=== PATIENT | male | born 1945 | race Caucasian/White ===

== ENCOUNTER 2018-09-27 07:02 | Day surgery (SDC) | payer MEDICARE, BC ==
[~2018-09-27] VITALS: Ht 172.7 cm; Wt 99.6 kg
[2018-09-27] VITALS (10 sets, daily range): BP systolic 127–151; BP diastolic 55–93
[~2018-09-27 07:02] MED LIST: ALLO100T PO; ASPI81TA52 PO; FERR-86 PO; FISH OIL PO; FLO0.1T PO; FLO0.4C PO; Glucosamine PO; METO50TA17 PO; SODI650T29 PO
[2018-09-27] MEDS ORDERED: diphenhydrAMINE 25mg capsule PO PRN (07:35)
[2018-09-27] MEDS ORDERED: sod bicarbonate 150mEq in D5W 1,150 ML IV ONE (07:35)
[2018-09-27] MEDS ORDERED: LABE100T5 PO (07:54)
[2018-09-27] MEDS ORDERED: PRED5TAB PO (07:54)
[2018-09-27] MEDS ORDERED: CEPH250T PO (07:54)
[2018-09-27] MEDS ORDERED: PRAV40TA3 PO (07:54)
[2018-09-27] MEDS ORDERED: TACR1CAP28 PO (07:54)
[2018-09-27] MEDS ORDERED: CALC0.2510 PO (07:54)
[2018-09-27] MEDS ORDERED: MYCO250C46 PO (07:54)
[2018-09-27] MEDS ORDERED: FINA5TAB11 PO (07:54)
[2018-09-27] MEDS ORDERED: LOSA1TAB36 PO (07:54)
[2018-09-27] MEDS ORDERED: AMLO10TA PO (07:54)
[2018-09-27 08:34] LABS: ALBUMIN 3.8 G/DL (3.4-5.0); ANION GAP 10 (8-16); BLOOD UREA NITROGEN 29 MG/DL (7-18); BUN/CREATININE RATIO 17.5 (5.4-32.0); CALCIUM 9.5 MG/DL (8.5-10.1); CHLORIDE 106 MMOL/L (99-107); CREATININE 1.66 MG/DL (0.60-1.10); GLUCOSE 129 MG/DL (70-104); MAGNESIUM 1.9 MG/DL (1.5-2.4); POTASSIUM 4.1 MMOL/L (3.5-5.1); SODIUM 141 MMOL/L (135-145); TOTAL CARBON DIOXIDE 25.2 MMOL/L (24-32); eGFR 41 ML/MIN
[2018-09-27 08:37] LABS: PROTHROMBIN TIME 10.1 SECONDS (9.0-12.0)
[2018-09-27 08:47] LABS: BASOPHILS % (AUTO) 0.4 % (0-1); EOSINOPHILS # (AUTO) 0.1 X10'3 (0-0.9); EOSINOPHILS % (AUTO) 0.9 % (0-6); HEMATOCRIT 44.5 % (42.0-52.0); LYMPHOCYTES # (AUTO) 0.7 X10'3 (1.1-4.8); LYMPHOCYTES % (AUTO) 10.3 % (21-51); MEAN CORPUSCULAR HEMOGLOBIN 31.8 PG (27.0-31.0); MEAN CORPUSCULAR HGB CONC 33.7 g/dL (33.0-36.5); MEAN CORPUSCULAR VOLUME 94.2 FL (78-98); MEAN PLATELET VOLUME 7.6 FL (7.4-10.4); MONOCYTES # (AUTO) 0.5 X10'3 (0-0.9); MONOCYTES % (AUTO) 6.2 % (2-12); NEUTROPHILS # (AUTO) 5.9 X10'3 (1.8-7.7); NEUTROPHILS % (AUTO) 82.2 % (42-75); PLATELET COUNT 136 X10'3 (140-440); RED BLOOD COUNT 4.72 X10'6 (4.70-6.10); RED CELL DISTRIBUTION WIDTH 14.7 % (11.5-14.5); WHITE BLOOD COUNT 7.2 X10'3 (4.5-11.0)
[2018-09-27] MEDS ORDERED: midazolam 2 mg/2 ml injection ONE ×2 (09:09→10:55)
[2018-09-27] MEDS ORDERED: fentaNYL/PF 50MCG/1 ML 2ML syringe ONE (09:09)
[2018-09-27] MEDS ORDERED: LIDOcaine 1% (10mg/ml)w/preservative injection 20ml MDV ONE (09:09)
[2018-09-27] MEDS ORDERED: iohexol 350MG/ML 100ml bottle IV ONE ×3 (09:09→10:10)
[2018-09-27] MEDS ORDERED: iohexol 350 MG/ML 50ML vial IV ONE (09:09)
[2018-09-27] MEDS ORDERED: heparin 1,000unit/ml 10ml vial 10 ML ONE (10:10)
[2018-09-27] MEDS ORDERED: heparin 1,000 UNITS/NS 500ml 500 ML ONE (10:40)
[2018-09-27] MEDS ORDERED: ticagrelor 90mg tablet ONE (11:18)
== END 2018-09-27 15:45 | disposition home or self-care (01) ==
LOC: SSTAY O 07:02
PROVIDERS: ATTEND Internal Medicine Cardiovascular Disease
DX: I25.10 Atherosclerotic heart disease of native coronary artery without angina pectoris (principal); I10 Essential (primary) hypertension; E78.5 Hyperlipidemia, unspecified; I48.91 Unspecified atrial fibrillation; M10.9 Gout, unspecified; G47.30 Sleep apnea, unspecified; E66.9 Obesity, unspecified; I34.0 Nonrheumatic mitral (valve) insufficiency; Z95.1 Presence of aortocoronary bypass graft; Z79.899 Other long term (current) drug therapy; Z98.890 Other specified postprocedural states
CPT/HCPCS: 36415; 80048; 83735; 85025; 85610; 93005; 93459; A6257; C1874; C9600; G0008; J1644; J2001; J2250; J3010; Q0163; Q9967; 99152; 99153; A4620; C1725; C1760; C1769; C1894; C9601

== ENCOUNTER 2021-04-19 07:00 | Day surgery (SDC) | payer MEDICARE, OTHER ==
[~2021-04-19] VITALS: Ht 175.3 cm; Wt 96.2 kg
[2021-04-19] VITALS (12 sets, daily range): BP systolic 104–134; BP diastolic 57–90
[~2021-04-19 07:00] MED LIST changes: +AMLO10TA PO; +APIX5TAB3 PO; -ASPI81TA52 PO; +CLOP75TA15 PO; -FERR-86 PO; -FISH OIL PO; -FLO0.1T PO; -Glucosamine PO; +LABE100T5 PO; +LOSA1TAB36 PO; -METO50TA17 PO; +MYCO250C46 PO; +OMEG1CAP13 PO; +PRAV40TA3 PO; +PRED5TAB PO; -SODI650T29 PO; +TACR1CAP24 PO; +TADA5TAB2 PO
[2021-04-19] MEDS ORDERED: AMIO200T61 PO (07:39)
[2021-04-19] MEDS ORDERED: APIX2.5T PO (07:39)
[2021-04-19] MEDS ORDERED: morphine 10mg/ml inj. IV ONE (07:45)
[2021-04-19] MEDS ORDERED: fentaNYL/PF 50MCG/1 ML 2ML syringe IV ONE (07:45)
[2021-04-19] MEDS ORDERED: normal saline 1000ml 1,000 ML IV SCH (07:45)
[2021-04-19 08:17] LABS: BASOPHILS % (AUTO) 0.4 % (0-1); EOSINOPHILS % (AUTO) 0.7 % (0-6); HEMATOCRIT 37.7 % (42.0-52.0); HEMOGLOBIN 12.4 g/dl (14.0-17.9); LYMPHOCYTES # (AUTO) 0.7 X10'3 (1.1-4.8); LYMPHOCYTES % (AUTO) 11.9 % (21-51); MEAN CORPUSCULAR HGB CONC 32.8 g/dL (33.0-36.5); MEAN CORPUSCULAR VOLUME 97.7 FL (78-98); MEAN PLATELET VOLUME 6.9 FL (7.4-10.4); MONOCYTES # (AUTO) 0.4 X10'3 (0-0.9); MONOCYTES % (AUTO) 7.1 % (2-12); NEUTROPHILS # (AUTO) 4.5 X10'3 (1.8-7.7); NEUTROPHILS % (AUTO) 79.9 % (42-75); PLATELET COUNT 148 X10'3 (140-440); RED BLOOD COUNT 3.86 X10'6 (4.70-6.10); WHITE BLOOD COUNT 5.7 X10'3 (4.5-11.0)
[2021-04-19 08:38] LABS: ALBUMIN 3.5 G/DL (3.4-5.0); ANION GAP 8 (8-16); BLOOD UREA NITROGEN 42 MG/DL (7-18); BUN/CREATININE RATIO 19.8 (5.4-32.0); CALCIUM 9.1 MG/DL (8.5-10.1); CHLORIDE 109 MMOL/L (99-107); CREATININE 2.12 MG/DL (0.60-1.10); GLUCOSE 118 MG/DL (70-104); POTASSIUM 4.1 MMOL/L (3.5-5.1); SODIUM 138 MMOL/L (135-145); TOTAL CARBON DIOXIDE 21.4 MMOL/L (24-32); eGFR 31 ML/MIN
[2021-04-19] MEDS ORDERED: MIDAZolam 1mg/ml 10ml vial IV ONE (08:40)
== END 2021-04-19 11:40 | disposition home or self-care (01) ==
LOC: SSTAY O 07:00
PROVIDERS: ATTEND Internal Medicine Cardiovascular Disease
DX: I48.0 Paroxysmal atrial fibrillation (principal); I25.10 Atherosclerotic heart disease of native coronary artery without angina pectoris; I45.2 Bifascicular block; I08.0 Rheumatic disorders of both mitral and aortic valves; I10 Essential (primary) hypertension; I70.8 Atherosclerosis of other arteries; G47.30 Sleep apnea, unspecified; N52.01 Erectile dysfunction due to arterial insufficiency; E78.5 Hyperlipidemia, unspecified; I71.4 Abdominal aortic aneurysm, without rupture; N19 Unspecified kidney failure; Z79.899 Other long term (current) drug therapy; M10.9 Gout, unspecified; E66.9 Obesity, unspecified; Z68.31 Body mass index [BMI] 31.0-31.9, adult; Z95.1 Presence of aortocoronary bypass graft; Z88.8 Allergy status to other drugs, medicaments and biological substances; Z72.89 Other problems related to lifestyle; Z98.890 Other specified postprocedural states; Z96.659 Presence of unspecified artificial knee joint; Z94.0 Kidney transplant status; Z82.49 Family history of ischemic heart disease and other diseases of the circulatory system
CPT/HCPCS: 36415; 80048; 83735; 85025; 85610; 92960; 93005; 94760; 94799; J2250; J3010; J7030

== ENCOUNTER 2021-04-22 06:58 | Day surgery (SDC) | payer MEDICARE, OTHER ==
[~2021-04-22] VITALS: Ht 172.7 cm; Wt 95.4 kg
[2021-04-22] VITALS (8 sets, daily range): BP systolic 137–154; BP diastolic 59–76
[~2021-04-22 06:58] MED LIST changes: +AMIO200T61 PO; +APIX2.5T PO; -APIX5TAB3 PO
[2021-04-22] MEDS ORDERED: ASPI81TA52 PO (07:23)
[2021-04-22] MEDS ORDERED: normal saline 1000ml 1,000 ML IV SCH (07:25)
[2021-04-22] MEDS ORDERED: cefazolin/dext.iso 2gm/100ml 100 ML IV ONE (07:30)
[2021-04-22] MEDS ORDERED: fentaNYL/PF 50MCG/1 ML 2ML syringe ONE (08:46)
[2021-04-22] MEDS ORDERED: midazolam 1 mg/ML 2ml injection ONE ×3 (08:46→09:59)
[2021-04-22] MEDS ORDERED: vancomycin 1,000mg inj ONE (08:46)
[2021-04-22] MEDS ORDERED: LIDOcaine 1% (10mg/ml)w/preservative injection 20ml MDV ONE (08:47)
[2021-04-22] MEDS ORDERED: LIDOCAINE 1%/EPI 1:100,000 inj. 10 ML multi-dose vial ONE (08:48)
--- NOTE | 2021-04-22 10:45 | NUR ---
Greta SALINAS at bedside, DC'd previously ordered CXR.
[2021-04-22] MEDS ORDERED: HYDROcodone/acetaminophen 5mg/325mg tablet PO PRN (11:00)
[2021-04-22] MEDS ORDERED: HYDROcodone/acetaminophen 10/325mg tab PO PRN (11:00)
--- NOTE | 2021-04-22 11:30 | NUR ---
Pt ate 100% of lunch tray. Drank 350 ml oral fluid intake.
== END 2021-04-22 13:15 | disposition home or self-care (01) ==
LOC: SSTAY O 06:58
PROVIDERS: ATTEND Internal Medicine Cardiovascular Disease
DX: I44.2 Atrioventricular block, complete (principal); I48.91 Unspecified atrial fibrillation; N18.9 Chronic kidney disease, unspecified; Z94.0 Kidney transplant status; Z79.899 Other long term (current) drug therapy; Z79.82 Long term (current) use of aspirin; Z79.01 Long term (current) use of anticoagulants
CPT/HCPCS: 33208; 93005; 99152; 99153; C1785; C1894; C1898; J2001; J2250; J3010; J3370; J7030; A4565; A4620; A4663; A6258

== ENCOUNTER 2023-07-24 10:51 | Outpatient (CLI) | payer MEDICARE, OTHER ==
[~2023-07-24 10:51] MED LIST changes: +AMI200T PO; -AMIO200T61 PO; +ASPI81TA52 PO; -LABE100T5 PO; +LABE100T8 PO; +OMEG-45 PO; -OMEG1CAP13 PO
[2023-07-24 12:03] LABS: BASOPHILS % (AUTO) 0.5 % (0-1); EOSINOPHILS % (AUTO) 0.5 % (0-6); HEMATOCRIT 37.6 % (42.0-52.0); HEMOGLOBIN 11.9 g/dl (14.0-17.9); LYMPHOCYTES # (AUTO) 0.5 X10'3 (1.1-4.8); MEAN CORPUSCULAR HEMOGLOBIN 32.3 PG (27.0-31.0); MEAN CORPUSCULAR HGB CONC 31.8 g/dL (33.0-36.5); MEAN CORPUSCULAR VOLUME 101.6 FL (78-98); MEAN PLATELET VOLUME 6.8 FL (7.4-10.4); MONOCYTES # (AUTO) 0.3 X10'3 (0-0.9); MONOCYTES % (AUTO) 6.8 % (2-12); NEUTROPHILS # (AUTO) 3.2 X10'3 (1.8-7.7); NEUTROPHILS % (AUTO) 80.2 % (42-75); PLATELET COUNT 109 X10'3 (140-440); RED CELL DISTRIBUTION WIDTH 15.4 % (11.5-14.5)
[2023-07-24 12:14] LABS: APTT 27 SECONDS (22-32); INR 1.1 INR; PROTHROMBIN TIME 11.3 SECONDS (9.0-12.0)
[2023-07-24 12:29] LABS: ALANINE AMINOTRANSFERASE 26 U/L (12-78); ALBUMIN 3.4 G/DL (3.4-5.0); ALKALINE PHOSPHATASE 68 IU/L (46-116); ANION GAP 7 (8-16); ASPARTATE AMINO TRANSFERASE 17 U/L (10-37); BILIRUBIN,TOTAL 0.5 MG/DL (0.1-1.0); BLOOD UREA NITROGEN 39 MG/DL (7-18); BUN/CREATININE RATIO 19.5 (10.0-20.0); CALCIUM 9.4 MG/DL (8.5-10.1); CHLORIDE 108 MMOL/L (99-107); GLUCOSE 114 MG/DL (70-104); PRO BRAIN NATRIURETIC PEPTIDE 930 PG/ML (0-450); SODIUM 141 MMOL/L (135-145); TOTAL CARBON DIOXIDE 25.9 MMOL/L (24-32); TOTAL PROTEIN 6.9 G/DL (6.4-8.2); eGFR 32 ML/MIN
== END 2023-07-24 23:59 | disposition home or self-care (01) ==
LOC: VAS 10:51
PROVIDERS: ATTEND Internal Medicine Cardiovascular Disease
DX: K80.20 Calculus of gallbladder without cholecystitis without obstruction (principal); K57.30 Diverticulosis of large intestine without perforation or abscess without bleeding; J90 Pleural effusion, not elsewhere classified; I65.23 Occlusion and stenosis of bilateral carotid arteries; I35.0 Nonrheumatic aortic (valve) stenosis; R06.02 Shortness of breath; I51.7 Cardiomegaly; I50.9 Heart failure, unspecified; I71.21 Aneurysm of the ascending aorta, without rupture; I71.43 Infrarenal abdominal aortic aneurysm, without rupture; N26.1 Atrophy of kidney (terminal); M43.17 Spondylolisthesis, lumbosacral region; R94.2 Abnormal results of pulmonary function studies; Z94.0 Kidney transplant status; Z95.0 Presence of cardiac pacemaker; Z95.2 Presence of prosthetic heart valve; Z95.1 Presence of aortocoronary bypass graft
CPT/HCPCS: 36415; 71046; 71275; 74174; 75572; 80053; 83880; 85025; 85610; 85730; 93880; 94010; 94727; 94729; Q9967; 75573

== ENCOUNTER 2023-07-30 14:48 | Outpatient (CLI) | payer MEDICARE, OTHER ==
[~2023-07-30] VITALS: Ht 170.2 cm; Wt 89.4 kg
[~2023-07-30 14:48] MED LIST changes: +IODIXANOL 320 MG/ML INFUS..BTL 100ML IV ONE
[2023-07-30 17:33] VITALS: BP 118/77; PULSE 99; RESP 24; TEMP 98.2; O2SAT 99
== END 2023-07-30 23:59 | disposition home or self-care (01) ==
LOC: TAVR 14:48
PROVIDERS: ATTEND Internal Medicine Cardiovascular Disease
DX: I35.0 Nonrheumatic aortic (valve) stenosis (principal); R06.02 Shortness of breath; I65.29 Occlusion and stenosis of unspecified carotid artery
CPT/HCPCS: Q9967

== ENCOUNTER 2023-08-10 09:07 | Day surgery (SDC) | payer MEDICARE, OTHER ==
[~2023-08-10] VITALS: Ht 170.2 cm; Wt 87.6 kg
[2023-08-10] VITALS (9 sets, daily range): BP systolic 112–138; BP diastolic 66–80; PULSE 60–86; RESP 16; TEMP 97.9; O2SAT 95–97
[~2023-08-10 09:07] MED LIST changes: -IODIXANOL 320 MG/ML INFUS..BTL 100ML IV ONE
[2023-08-10] MEDS ORDERED: sodium bicarbonate 1meq/ml syr 150 ML in dextrose 5%-water 1,000 ML IV SCH (09:40)
[2023-08-10] MEDS ORDERED: normal saline 1,000 ML IV SCH (09:40)
[2023-08-10] MEDS ORDERED: diphenhydrAMINE 25mg capsule PO PRN (09:40)
[2023-08-10] MEDS ORDERED: FURO40TA4 PO (09:51)
[2023-08-10] MEDS ORDERED: FERR-119 PO (09:51)
[2023-08-10] MEDS ORDERED: LISI1TAB49 PO (09:51)
[2023-08-10] MEDS ORDERED: FINA5TAB11 PO (09:51)
[2023-08-10] MEDS ORDERED: PRAV80TA3 PO (09:51)
[2023-08-10 10:30] LABS: BASOPHILS % (AUTO) 0.7 % (0-1); EOSINOPHILS % (AUTO) 1.1 % (0-6); HEMATOCRIT 37.5 % (42.0-52.0); HEMOGLOBIN 12.2 g/dl (14.0-17.9); LYMPHOCYTES # (AUTO) 0.6 X10'3 (1.1-4.8); LYMPHOCYTES % (AUTO) 12.9 % (21-51); MEAN CORPUSCULAR HEMOGLOBIN 32.8 PG (27.0-31.0); MEAN CORPUSCULAR HGB CONC 32.6 g/dL (33.0-36.5); MEAN CORPUSCULAR VOLUME 100.7 FL (78-98); MEAN PLATELET VOLUME 6.8 FL (7.4-10.4); MONOCYTES # (AUTO) 0.3 X10'3 (0-0.9); NEUTROPHILS # (AUTO) 3.3 X10'3 (1.8-7.7); NEUTROPHILS % (AUTO) 77.3 % (42-75); PLATELET COUNT 109 X10'3 (140-440); RED BLOOD COUNT 3.73 X10'6 (4.70-6.10); RED CELL DISTRIBUTION WIDTH 15.5 % (11.5-14.5); WHITE BLOOD COUNT 4.3 X10'3 (4.5-11.0)
[2023-08-10 10:41] LABS: APTT 26 SECONDS (22-32); PROTHROMBIN TIME 11.1 SECONDS (9.0-12.0)
[2023-08-10 10:42] LABS: ALANINE AMINOTRANSFERASE 27 U/L (12-78); ALBUMIN 3.5 G/DL (3.4-5.0); ALBUMIN/GLOBULIN RATIO 0.9 (1.1-1.5); ALKALINE PHOSPHATASE 58 IU/L (46-116); ANION GAP 11 (8-16); ASPARTATE AMINO TRANSFERASE 16 U/L (10-37); BILIRUBIN,TOTAL 0.5 MG/DL (0.1-1.0); BLOOD UREA NITROGEN 45 MG/DL (7-18); BUN/CREATININE RATIO 22.4 (10.0-20.0); CALCIUM 9.8 MG/DL (8.5-10.1); CHLORIDE 107 MMOL/L (99-107); CREATININE 2.01 MG/DL (0.60-1.10); GLUCOSE 101 MG/DL (70-104); MAGNESIUM 1.9 MG/DL (1.5-2.4); POTASSIUM 4.1 MMOL/L (3.5-5.1); SODIUM 141 MMOL/L (135-145); TOTAL CARBON DIOXIDE 22.6 MMOL/L (24-32); TOTAL PROTEIN 7.2 G/DL (6.4-8.2); eCRCL 28 ML/MIN; eGFR 32 ML/MIN
[2023-08-10] MEDS ORDERED: LIDOcaine 1% 30ml preserv. free vial ONE (12:45)
[2023-08-10] MEDS ORDERED: fentaNYL/PF 50MCG/1 ML 2ML syringe ONE (12:45)
[2023-08-10] MEDS ORDERED: midazolam 1 mg/ML 2ml injection ONE (12:45)
[2023-08-10] MEDS ORDERED: iohexol 350MG/ML 100ml bottle IV ONE (12:46)
[2023-08-10] MEDS ORDERED: heparin 1,000unit/ml 10ml vial 10 ML ONE (12:46)
== END 2023-08-10 17:45 | disposition home or self-care (01) ==
LOC: SSTAY O 09:07
PROVIDERS: ATTEND Internal Medicine Cardiovascular Disease
DX: I35.0 Nonrheumatic aortic (valve) stenosis (principal); I25.810 Atherosclerosis of coronary artery bypass graft(s) without angina pectoris; I49.5 Sick sinus syndrome; I48.0 Paroxysmal atrial fibrillation; I10 Essential (primary) hypertension; I45.2 Bifascicular block; E78.5 Hyperlipidemia, unspecified; G47.33 Obstructive sleep apnea (adult) (pediatric); I45.10 Unspecified right bundle-branch block; M10.9 Gout, unspecified; E66.9 Obesity, unspecified; Z68.28 Body mass index [BMI] 28.0-28.9, adult; Z95.0 Presence of cardiac pacemaker; Z86.19 Personal history of other infectious and parasitic diseases; Z94.0 Kidney transplant status; Z98.890 Other specified postprocedural states; Z79.899 Other long term (current) drug therapy; Z79.01 Long term (current) use of anticoagulants; Z72.89 Other problems related to lifestyle; Z88.8 Allergy status to other drugs, medicaments and biological substances; Z87.891 Personal history of nicotine dependence
CPT/HCPCS: 36415; 80053; 83735; 85025; 85610; 85730; 93005; 93455; 99152; 99153; J1644; J2250; J3010; J3490; J7070; Q0163; Q9967; 93454; A6258; C1725; C1760; C1769; C1894